=== PATIENT | male | born 1990 | race Caucasian/White ===

== ENCOUNTER 2023-08-22 01:49 | Inpatient (IN) ==
--- NOTE | 2023-08-22 02:08 | Emergency Department Note ---
Impression & Plan Otitis externa, Otitis media, Acute mastoiditis, Leukocytosis, Acute hypokalemia, COVID-19 ED Provider Note HISTORY OF PRESENT ILLNESS: Patient is a 33-year-old male presenting with left ear pain. Patient reports over the last 48 hours he been having progressively worsening pain in his left ear. Reports he has been alternating Tylenol and ibuprofen with little relief in his symptoms. Reports his last dose of acetaminophen was at midnight and was at 1000 mg. Reports that he has been having a recurrent ear infection in his left ear since March. In March he was diagnosed with otitis media and started on amoxicillin. He reports he was then diagnosed with a left ear infection at the end of July and started on a 10-day course of amoxicillin. He reports he was also given steroids during that course. He states that he was doing well and then was started on another short course of steroids for a sinus infection. States that he had a low-grade fever of 99 yesterday. He denies any chest pain or shortness of breath. He states that he is now having significant pain in the left ear that feels like a pressure sensation. He is also having pain on the left side of his neck. He does report pain with [id number] movement of the neck. Denies any pain or difficulty swallowing. Denies any headache or changes in vision. ROS: as above PHYSICAL EXAM: Constitutional: Patient appears in no acute distress. HENT: Head: Normocephalic and atraumatic. Eyes: EOMI, PERRL Right Ear: TM intact without erythema or bulging. External canal without erythema or discharge. Left Ear: TM with erythema and bulging. External canal is also slightly erythematous but without any discharge. Patient has significant tenderness to palpation of the mastoid on the left. Mouth/Throat: Mucous membranes moist. Uvula midline. No tonsillar hypertrophy or exudate. Neck: Trachea midline. Neck supple. Cardiovascular: Tachycardic with regular rhythm. No murmurs, rubs or gallops. Intact distal pulses. Pulmonary/Chest: No respiratory distress. Breath sounds clear and equal bilaterally. No wheezes or rales. Abdominal: Abdomen soft, no tenderness, rebound or guarding. Musculoskeletal: No edema, tenderness or deformity noted. Skin: Warm and dry. No rash, erythema, pallor or cyanosis Psychiatric: Appropriate mood and affect for situation. Neurological: Alert and keenly responsive. CN II-XII grossly intact, moving all extremities equally and fully. MDM: - Vitals signs showed tachycardia. - History obtained via patient. History as above. - Chronic conditions affecting care: None - Differential diagnoses include, but are not limited to: Otitis externa; otitis media; retropharyngeal infection; viral syndrome - Order placed for continuous cardiac monitoring. At this time, monitor showed rate of 87 bpm with normal sinus rhythm, per my interpretation. - External medical records reviewed. - Laboratory workup interpreted by myself showed leukocytosis (WBC 13.89) with left shift; hypokalemia (K 3.2); hyperglycemia (glucose 145) - CT soft tissue neck with IV contrast showed opacification of the left middle ear cavity and mastoid air cells consistent with otomastoiditis. Noted to also have thickening of the external auditory canal indicative of otitis externa. - Viral respiratory panel positive for COVID-19 - Patient given IV vancomycin and IV rocephin in ER for antibiotic coverage. - Ofloxacin drops also ordered for treatment of otitis externa - Discussion was had with casework supervisor about patient's case and need for admission - Hospitalist consulted for admission - Patient admitted to [facility] for further evaluation and management. ASSESSMENT AND PLAN: Diagnosis: acute left ear pain; otitis externa; otitis media; acute otomastoiditis; acute hypokalemia; COVID-19 infection Plan: admit Past Med/Surg History Problem List (Updated 08/22/23 @ 04:27 by Natalia Hernández MD) COVID-19 (Acute) Acute hypokalemia (Acute) Leukocytosis (Acute) Acute mastoiditis (Acute) Otitis media (Acute) Otitis externa (Acute) Social History (System 04/08/22 @ 15:30 by Raiza Noonan) Smoking Status: Current every day smoker Tobacco Type: E-cigarettes / Vaping Preferred Language: Niuean Feels Safe at Home: Yes Allergies Allergies Allergy/AdvReac Type Severity Reaction Status Date / Time codeine Allergy Unknown HAPPENED Verified 08/22/23 02:21 AN Home Meds Home Medications Medication Instructions Recorded Confirmed acetaminophen 500 mg tablet 500 mg PO Q6H PRN PAIN/FEVER 08/22/23 08/22/23 (Tylenol Extra Strength) ibuprofen 200 mg tablet 200 - 400 mg PO Q6H PRN PAIN/FEVER 08/22/23 08/22/23 Results & Data (ED) Vital Signs Vital Signs - 24 hr 08/22/23 01:51 Temperature 36.5 C Temperature Source Temporal Artery Scan Pulse Rate 103 H Respiratory Rate 16 Respiratory Effort / Characteristics Non-Labored Spontaneous Respiratory Depth Normal Blood Pressure 100/64 Blood Pressure Mean 76 Blood Pressure Position Sitting Pulse Oximetry 96 Oxygen Delivery Method Room Air Sepsis Recent Fever Within 48 Hours No Sepsis New/Unexplained Change in Mental Status No Sepsis Action Taken by Nursing No Action Required Laboratory Data 08/22/23 Unknown 08/22/23 Unknown Lab Results 08/22/23 08/22/23 Range/Units 02:35 Unknown WBC 13.89 H (4.8-10.8) K/ul RBC 5.38 (4.70-6.10) M/uL Hgb 13.9 L (14.0-18.0) g/dl Hct 42.2 (42.0-52.0) % MCV 78.4 L (80.0-100.0) fL MCH 25.8 (25.0-34.0) pg MCHC 32.9 (32.0-36.0) g/dL RDW Std Deviation 37.0 (36.4-46.3) fL RDW Coeff of Ruslan 13.1 (11.5-14.5) % Plt Count 304 (130-400) K/uL MPV 9.8 (9.4-12.4) fL Immature Gran % (Auto) 0.6 % Neut % (Auto) 69.2 % Lymph % (Auto) 22.0 % [place] % (Auto) 7.1 % Eos % (Auto) 0.7 % Baso % (Auto) 0.4 % Neut # (Auto) 9.62 H (1.40-6.50) K/uL Lymph # (Auto) 3.06 (1.20-3.40) K/uL [place] # (Auto) 0.98 H (0.11-0.59) K/uL Eos # (Auto) 0.10 (0.00-0.50) K/uL Baso # (Auto) 0.05 (0.00-0.20) K/uL Immature Gran # (Auto) 0.08 (0.01-0.20) K/uL Sodium 138 (136-145) mmol/L Potassium 3.2 L (3.5-5.1) mmol/L Chloride 104 (98-107) mmol/L Carbon Dioxide 28 (21-32) mmol/L Anion Gap 6 (3-11) BUN 8 (6-23) mg/dl Creatinine 0.92 (0.6-1.4) mg/dl Est Cr Clr Drug Dosing 145.7 ml/min Est GFR ( Amer) 128.0 ml/min Est GFR (Non-Af Amer) 110.4 ml/min BUN/Creatinine Ratio 8.7 L (10-20) Glucose 145 H (70-99(Fasting)) mg/dl Calcium 9.0 (8.6-10.3) mg/dl Total Bilirubin 0.5 (0.2-1.0) mg/dl AST 21 (13-39) U/L ALT 33 (7-52) U/L Alkaline Phosphatase 59 (34-104) U/L Total Protein 7.1 (6.0-8.3) gm/dl Albumin 3.9 (3.4-5.0) gm/dl Globulin 3.2 (2.5-4.0) gm/dl Albumin/Globulin Ratio 1.2 (0.9-2) Adenovirus (PCR) Not Detected (NotDetected) B. pertussis DNA (PCR) Not Detected (NotDetected) B.parapertussis DNA PCR Not Detected (NotDetected) C. pneumoniae DNA (PCR) Not Detected (NotDetected) Coronavirus OC43 (PCR) Not Detected (NotDetected) Coronavirus HKU1 (PCR) Not Detected (NotDetected) Coronavirus 229E (PCR) Not Detected (NotDetected) SARS-CoV-2 (PCR) DETECTED A (NotDetected) Coronavirus NL63 (PCR) Not Detected (NotDetected) Human Metapneumovir PCR Not Detected (NotDetected) Influenza Type A (PCR) Not Detected (NotDetected) Influenza Type B (PCR) Not Detected (NotDetected) M. pneumoniae (PCR) Not Detected (NotDetected) Parainfluenza 1 (PCR) Not Detected (NotDetected) Parainfluenza 2 (PCR) Not Detected (NotDetected) Parainfluenza 3 (PCR) Not Detected (NotDetected) Parainfluenza 4 (PCR) Not Detected (NotDetected) RSV (PCR) Not Detected (NotDetected) Entero/Rhino (PCR) Not Detected (NotDetected) Administered Medications Discontinued Medications Fentanyl Citrate (Fentanyl Citrate Pf 100 Mcg/2 Ml Vial) 50 mcg IV NOW STA Stop: 08/22/23 02:07 Last Admin: 08/22/23 02:33 Dose: 50 mcg Documented By: MELVIN Sodium Chloride (Nss) 1,000 mls @ 999 mls/hr IV .Q1H1M ONE Stop: 08/22/23 03:06 Last Infusion: 08/22/23 03:43 Dose: Infused Documented By: Admin: 08/22/23 02:33 Dose: 999 mls/hr Documented By: MELVIN Ioversol (Optiray 320 100ml) 100 ml IV ONCE ONE Stop: 08/22/23 03:12 Last Admin: 08/22/23 03:12 Dose: 91 ml Documented By: BON Imaging Data Radiologist's Impression: Soft Tissue Neck CT 08/22/23 02:06 Exam(s): CT NECK With Contrast IV Amt: 91 ML OPTIRAY 320 EXAM: CT Neck With Intravenous Contrast CLINICAL HISTORY: Reason for exam: neck pain with chronic L ear infection. TECHNIQUE: Axial computed tomography images of the neck with intravenous contrast. Automated exposure control was utilized for the study. A dose lowering technique was utilized adhering to the principles of ALARA. CONTRAST: Patient received 91 ML OPTIRAY 320 of IV contrast COMPARISON: No relevant prior studies available. FINDINGS: Oropharynx: Unremarkable. No significant tonsillar enlargement. No peritonsillar abscess. Hypopharynx: Unremarkable. Larynx: Unremarkable. Normal epiglottis. Trachea: Unremarkable. Retropharyngeal space: Unremarkable. Submandibular/parotid glands: Unremarkable. Glands are normal in size. Thyroid: Unremarkable. No enlarged or calcified nodules. Bones/joints: No acute fracture. Soft tissues: Unremarkable. Vasculature: No acute findings. Lymph nodes: Mild level 2 and level 3 lymphadenopathy bilaterally with several lymph nodes measuring up to 11 mm short axis diameter. Auditory system: There is opacification of the left middle ear cavity and mastoid air cells consistent with otomastoiditis. There is also slight thickening of the external auditory canal tissues which could indicate otitis externa as well. Lung apices: Unremarkable as visualized. IMPRESSION: There is opacification of the left middle ear cavity and mastoid air cells consistent with otomastoiditis. There is also slight thickening of the external auditory canal tissues which could indicate otitis externa as well. Electronically signed by: Benjamín Jolly MD 08/22/23 04:09 AM Discharge Plan Visit Data Chief Complaint: Ear Pain/Problem Stated Complaint: L EAR PAIN/PRESSURE ED Provider: Natalia Hernández Discharge Problem: Otitis externa, Otitis media, Acute mastoiditis, Leukocytosis, Acute hypokalemia, COVID-19 Forms Stand Alone Forms: [facility] [employer] Prescriptions Prescriptions: No Action acetaminophen [Tylenol Extra Strength] 500 mg Tablet 500 mg PO Q6H PRN (Reason: PAIN/FEVER) ibuprofen 200 mg Tablet 200 - 400 mg PO Q6H PRN (Reason: PAIN/FEVER) Referrals Referrals: PCP,NO [Primary Care Provider] -
[2023-08-22] MEDS: SODIUM CHLORIDE 0.9% 1,000 ML IV ONE (02:33)
[2023-08-22] MEDS: fentaNYL citrate PF 100 MCG/2 ML VIAL IV STA (02:33)
[2023-08-22 02:51] LABS: Albumin Globulin Ratio 1.2 (0.9-2); Albumin Level 3.9 gm/dl (3.4-5.0); BUN Creatinine Ratio 8.7 (10-20); Basophils # (auto) 0.05 K/uL (0.00-0.20); Basophils % (auto) 0.4 %; Bilirubin,Total 0.5 mg/dl (0.2-1.0); Creatinine Clr Calc Pharmacy 145.7 ml/min; Eosinophils % (auto) 0.7 %; Est GFR (Non-African American) 110.4 ml/min; Globulin 3.2 gm/dl (2.5-4.0); Hematocrit (blood only) 42.2 % (42.0-52.0); Hemoglobin 13.9 g/dl (14.0-18.0); Immature Granulocytes # (auto) 0.08 K/uL (0.01-0.20); Immature Granulocytes % (auto) 0.6 %; Lymphocytes # (auto) 3.06 K/uL (1.20-3.40); Mean Corpuscular Hemoglobin 25.8 pg (25.0-34.0); Mean Corpuscular Hgb Conc 32.9 g/dL (32.0-36.0); Mean Corpuscular Volume 78.4 fL (80.0-100.0); Mean Platelet Volume 9.8 fL (9.4-12.4); Monocytes # (auto) 0.98 K/uL (0.11-0.59); Monocytes % (auto) 7.1 %; Neutrophils # (auto) 9.62 K/uL (1.40-6.50); Neutrophils % (auto) 69.2 %; Platelet Count 304 K/uL (130-400); Potassium 3.2 mmol/L (3.5-5.1); RDW Coefficient of Variation 13.1 % (11.5-14.5); Red Blood Count 5.38 M/uL (4.70-6.10); Total Protein 7.1 gm/dl (6.0-8.3); White Blood Count 13.89 K/ul (4.8-10.8)
[2023-08-22] MEDS: OPTIRAY 320 100ml IV ONE (03:12)
[2023-08-22 03:37] LABS: Adenovirus PCR Not Detected (NotDetected); Bordetella parapertussis PCR Not Detected (NotDetected); Bordetella pertussis PCR Not Detected (NotDetected); Chlamydia pneumoniae PCR Not Detected (NotDetected); Coronavirus 229E PCR Not Detected (NotDetected); Coronavirus CoV-2 (COVID19)PCR DETECTED (NotDetected); Coronavirus HKU1 PCR Not Detected (NotDetected); Coronavirus NL63 PCR Not Detected (NotDetected); Coronavirus OC43PCR Not Detected (NotDetected); Human Metapneumovirus PCR Not Detected (NotDetected); Influenza A PCR Not Detected (NotDetected); Influenza B PCR Not Detected (NotDetected); Mycoplasma pneumoniae PCR Not Detected (NotDetected); Parainfluenza Virus 1 PCR Not Detected (NotDetected); Parainfluenza Virus 2 PCR Not Detected (NotDetected); Parainfluenza Virus 3 PCR Not Detected (NotDetected); Parainfluenza Virus 4 PCR Not Detected (NotDetected); Respiratory Syncytial VirusPCR Not Detected (NotDetected); Rhinovirus/Enterovirus PCR Not Detected (NotDetected)
--- NOTE | 2023-08-22 04:10 | CT Scan Report ---
Exam(s): CT NECK With Contrast IV Amt: 91 ML OPTIRAY 320 EXAM: CT Neck With Intravenous Contrast CLINICAL HISTORY: Reason for exam: neck pain with chronic L ear infection. TECHNIQUE: Axial computed tomography images of the neck with intravenous contrast. Automated exposure control was utilized for the study. A dose lowering technique was utilized adhering to the principles of ALARA. CONTRAST: Patient received 91 ML OPTIRAY 320 of IV contrast COMPARISON: No relevant prior studies available. FINDINGS: Oropharynx: Unremarkable. No significant tonsillar enlargement. No peritonsillar abscess. Hypopharynx: Unremarkable. Larynx: Unremarkable. Normal epiglottis. Trachea: Unremarkable. Retropharyngeal space: Unremarkable. Submandibular/parotid glands: Unremarkable. Glands are normal in size. Thyroid: Unremarkable. No enlarged or calcified nodules. Bones/joints: No acute fracture. Soft tissues: Unremarkable. Vasculature: No acute findings. Lymph nodes: Mild level 2 and level 3 lymphadenopathy bilaterally with several lymph nodes measuring up to 11 mm short axis diameter. Auditory system: There is opacification of the left middle ear cavity and mastoid air cells consistent with otomastoiditis. There is also slight thickening of the external auditory canal tissues which could indicate otitis externa as well. Lung apices: Unremarkable as visualized. IMPRESSION: There is opacification of the left middle ear cavity and mastoid air cells consistent with otomastoiditis. There is also slight thickening of the external auditory canal tissues which could indicate otitis externa as well. Electronically signed by: Benjamín Jolly MD 08/22/23 04:09 AM
[2023-08-22] MEDS ORDERED: VANCOMYCIN CONSULT ACTIVE PRN (04:12)
[2023-08-22] MEDS ORDERED: PROMETHAZINE HCL 12.5 MG in SODIUM CHLORIDE 0.9% 50 ML IV PRN (04:39)
[2023-08-22] MEDS: POTASSIUM CHLORIDE CRTAB 20 MEQ TABCR PO STA (04:54)
[2023-08-22 05:05] LABS: Magnesium 1.9 mg/dl (1.7-2.4)
[2023-08-22] MEDS: oxyCODONE HCL IR 5 MG TAB (IMMEDIATE RELEASE) PO PRN (05:05)
[2023-08-22] MEDS: NSS + 20MEQ KCL 20 MEQ/1,000 ML BAG IV ONE (05:05)
[2023-08-22] MEDS: CEFEPIME 2,000 MG/20 ML VIAL IV STA (05:05)
[2023-08-22] MEDS: VANCOMYCIN HCL 2,250 MG in SODIUM CHLORIDE 0.9% 500 ML IV ONE (05:24)
--- NOTE | 2023-08-22 05:47 | History & Physical Report ---
Date of Service August 22, 2023 Assessment & Plan (1) Sepsis: Plan: Secondary to left ear infection Otitis media associated with otitis externa as per CT Concomitant COVID-19 illness Hyperglycemia rule out DM Medical telemetry CS, Vancomycin, cefepime Topical Cipro for otitis externa left ENT consult re: left ear infection Check hemoglobin A1c DVT prophylaxis with Lovenox subcu Full code Text document was generated using [employer] voice recognition software. It may contain grammatical or spelling errors. Kindly contact undersigned for clarification of any documentation item in question. History of Present Illness Primary Care Provider: NO PCP History obtained from patient, family, and records. No significant medical history. 2 months ago, patient noted left ear fullness and discomfort. No discharge. No fever, no chills. Patient consulted local urgent care center which prescribed antibiotic and steroid Rx for combined sinus and ear infection. Minimal improvement of symptoms as per patient. Patient admits to intermittent left ear manipulation. Few days ago, patient noted worsening left ear pain. Fever and chills at home. No chest pain, no SOB. No cough symptoms Girlfriend with URTI symptoms as per patient. Intermittent dizziness symptoms described as spinning sensation. Pain going to the left jaw as per patient. Outpatient ENT consultation consulted at [facility] 2 days from now. Patient consulted ER for worsening symptoms. Medical History as above Surgical History : None Family History : Hypertension, DM Personal/Social history : Ongoing vape use, occasional Et[employer] intake, [employer] employment Allergies Allergy/AdvReac Type Severity Reaction Status Date / Time codeine Allergy Unknown HAPPENED Verified 08/22/23 02:21 AN Home Medications Medication Instructions Recorded Confirmed Type acetaminophen 500 mg tablet 500 mg PO Q6H PRN PAIN/FEVER 08/22/23 08/22/23 Hist ory (Tylenol Extra Strength) ibuprofen 200 mg tablet 200 - 400 mg PO Q6H PRN PAIN/FEVER 08/22/23 08/22/23 History Past Med/Surg History Problem List (Updated 08/22/23 @ 09:10 by Glen Marques MD) Sepsis COVID-19 (Acute) Acute hypokalemia (Acute) Leukocytosis (Acute) Acute mastoiditis (Acute) Otitis media (Acute) Otitis externa (Acute) Social History (System 04/08/22 @ 15:30 by Raiza Noonan) Smoking Status: Current every day smoker Tobacco Type: E-cigarettes / Vaping Preferred Language: Danish Feels Safe at Home: Yes Review of Systems Review of Systems: As per HPI, all other systems reviewed and negative Physical Exam Physical Exam: GENERAL: Slightly uncomfortable, pleasant, obese, no respiratory distress SKIN: Normal color, warm HEENT: [place] palpebral conjunctivae, no ptosis, dry buccal mucosa; AD: Patent mildly hyperemic EAC, retained cerumen, intact TM : Tragal tenderness, no discharge, hyperemic EAC, TM not visualized NECK : Supple, no tenderness CHEST : CTA, minimal left cervical tenderness HEART : RRR, no obvious murmurs ABDOMEN: Some distention, nontender EXTREMITIES : No LE swelling/tenderness, no other conspicuous deformities noted NEUROLOGIC : Coherent, no facial asymmetry, no other gross focality Results & Data Results & Data Vital Signs (Past 12 Hours) Vital Signs Temp Pulse Pulse Resp BP BP Pulse Ox 08/22/23 04:30 98 H 20 122/69 98 08/22/23 01:51 36.5 C 103 H 16 100/64 96 O2 Del Method 08/22/23 04:30 Room Air 08/22/23 01:51 Room Air Laboratory Results Laboratory Results WBC 13.89 K/ul (4.8-10.8) H 08/22/23 Unknown RBC 5.38 M/uL (4.70-6.10) 08/22/23 Unknown Hgb 13.9 g/dl (14.0-18.0) L 08/22/23 Unknown Hct 42.2 % (42.0-52.0) 08/22/23 Unknown MCV 78.4 fL (80.0-100.0) L 08/22/23 Unknown MCH 25.8 pg (25.0-34.0) 08/22/23 Unknown MCHC 32.9 g/dL (32.0-36.0) 08/22/23 Unknown RDW Std Deviation 37.0 fL (36.4-46.3) 08/22/23 Unknown RDW Coeff of Ruslan 13.1 % (11.5-14.5) 08/22/23 Unknown Plt Count 304 K/uL (130-400) 08/22/23 Unknown MPV 9.8 fL (9.4-12.4) 08/22/23 Unknown Immature Gran % (Auto) 0.6 % 08/22/23 Unknown Neut % (Auto) 69.2 % 08/22/23 Unknown Lymph % (Auto) 22.0 % 08/22/23 Unknown [place] % (Auto) 7.1 % 08/22/23 Unknown Eos % (Auto) 0.7 % 08/22/23 Unknown Baso % (Auto) 0.4 % 08/22/23 Unknown Neut # (Auto) 9.62 K/uL (1.40-6.50) H 08/22/23 Unknown Lymph # (Auto) 3.06 K/uL (1.20-3.40) 08/22/23 Unknown [place] # (Auto) 0.98 K/uL (0.11-0.59) H 08/22/23 Unknown Eos # (Auto) 0.10 K/uL (0.00-0.50) 08/22/23 Unknown Baso # (Auto) 0.05 K/uL (0.00-0.20) 08/22/23 Unknown Immature Gran # (Auto) 0.08 K/uL (0.01-0.20) 08/22/23 Unknown Sodium 138 mmol/L (136-145) 08/22/23 Unknown Potassium 3.2 mmol/L (3.5-5.1) L 08/22/23 Unknown Chloride 104 mmol/L (98-107) 08/22/23 Unknown Carbon Dioxide 28 mmol/L (21-32) 08/22/23 Unknown Anion Gap 6 (3-11) 08/22/23 Unknown BUN 8 mg/dl (6-23) 08/22/23 Unknown Creatinine 0.92 mg/dl (0.6-1.4) 08/22/23 Unknown Est Cr Clr Drug Dosing 145.7 ml/min 08/22/23 Unknown Est GFR ( Amer) 128.0 ml/min 08/22/23 Unknown Est GFR (Non-Af Amer) 110.4 ml/min 08/22/23 Unknown BUN/Creatinine Ratio 8.7 (10-20) L 08/22/23 Unknown Glucose 145 mg/dl (70-99(Fasting)) H 08/22/23 Unknown Lactate 1.7 mmol/L (0.4-2.0) 08/22/23 04:23 Calcium 9.0 mg/dl (8.6-10.3) 08/22/23 Unknown Magnesium 1.9 mg/dl (1.7-2.4) 08/22/23 Unknown Total Bilirubin 0.5 mg/dl (0.2-1.0) 08/22/23 Unknown AST 21 U/L (13-39) 08/22/23 Unknown ALT 33 U/L (7-52) 08/22/23 Unknown Alkaline Phosphatase 59 U/L (34-104) 08/22/23 Unknown Total Protein 7.1 gm/dl (6.0-8.3) 08/22/23 Unknown Albumin 3.9 gm/dl (3.4-5.0) 08/22/23 Unknown Globulin 3.2 gm/dl (2.5-4.0) 08/22/23 Unknown Albumin/Globulin Ratio 1.2 (0.9-2) 08/22/23 Unknown Adenovirus (PCR) Not Detected (NotDetected) 08/22/23 02:35 B. pertussis DNA (PCR) Not Detected (NotDetected) 08/22/23 02:35 B.parapertussis DNA PCR Not Detected (NotDetected) 08/22/23 02:35 C. pneumoniae DNA (PCR) Not Detected (NotDetected) 08/22/23 02:35 Coronavirus OC43 (PCR) Not Detected (NotDetected) 08/22/23 02:35 Coronavirus HKU1 (PCR) Not Detected (NotDetected) 08/22/23 02:35 Coronavirus 229E (PCR) Not Detected (NotDetected) 08/22/23 02:35 SARS-CoV-2 (PCR) DETECTED (NotDetected) A 08/22/23 02:35 Coronavirus NL63 (PCR) Not Detected (NotDetected) 08/22/23 02:35 Human Metapneumovir PCR Not Detected (NotDetected) 08/22/23 02:35 Influenza Type A (PCR) Not Detected (NotDetected) 08/22/23 02:35 Influenza Type B (PCR) Not Detected (NotDetected) 08/22/23 02:35 M. pneumoniae (PCR) Not Detected (NotDetected) 08/22/23 02:35 Parainfluenza 1 (PCR) Not Detected (NotDetected) 08/22/23 02:35 Parainfluenza 2 (PCR) Not Detected (NotDetected) 08/22/23 02:35 Parainfluenza 3 (PCR) Not Detected (NotDetected) 08/22/23 02:35 Parainfluenza 4 (PCR) Not Detected (NotDetected) 08/22/23 02:35 RSV (PCR) Not Detected (NotDetected) 08/22/23 02:35 Entero/Rhino (PCR) Not Detected (NotDetected) 08/22/23 02:35 Impressions Soft Tissue Neck CT 08/22/23 02:06 Exam(s): CT NECK With Contrast IV Amt: 91 ML OPTIRAY 320 EXAM: CT Neck With Intravenous Contrast CLINICAL HISTORY: Reason for exam: neck pain with chronic L ear infection. TECHNIQUE: Axial computed tomography images of the neck with intravenous contrast. Automated exposure control was utilized for the study. A dose lowering technique was utilized adhering to the principles of ALARA. CONTRAST: Patient received 91 ML OPTIRAY 320 of IV contrast COMPARISON: No relevant prior studies available. FINDINGS: Oropharynx: Unremarkable. No significant tonsillar enlargement. No peritonsillar abscess. Hypopharynx: Unremarkable. Larynx: Unremarkable. Normal epiglottis. Trachea: Unremarkable. Retropharyngeal space: Unremarkable. Submandibular/parotid glands: Unremarkable. Glands are normal in size. Thyroid: Unremarkable. No enlarged or calcified nodules. Bones/joints: No acute fracture. Soft tissues: Unremarkable. Vasculature: No acute findings. Lymph nodes: Mild level 2 and level 3 lymphadenopathy bilaterally with several lymph nodes measuring up to 11 mm short axis diameter. Auditory system: There is opacification of the left middle ear cavity and mastoid air cells consistent with otomastoiditis. There is also slight thickening of the external auditory canal tissues which could indicate otitis externa as well. Lung apices: Unremarkable as visualized. IMPRESSION: There is opacification of the left middle ear cavity and mastoid air cells consistent with otomastoiditis. There is also slight thickening of the external auditory canal tissues which could indicate otitis externa as well. Electronically signed by: Benjamín Jolly MD 08/22/23 04:09 AM
[2023-08-22] MEDS: OFLOXACIN 0.3% 75 DROPS/5 ML BTL OTL SCH (06:10)
[2023-08-22] MEDS: cefTRIAXone SODIUM 1,000 MG/50 ML BAG IV STA (06:59)
[2023-08-22 07:12] LABS: Estimated Average Glucose 111 mg/dl; Hemoglobin A1C 5.5 % (4.5-5.6)
--- NOTE | 2023-08-22 07:14 | Communication Note ---
Date of Service: August 22, 2023 Pt was seen in 251-1 Resting comfortably. Denied acute concerns. L ear tender to palpation, no significant erythema noted Otomastoiditis, otits externa Continue current treatments with Cefepime and Vanc, ciprodex For further/complete information on plan of care, please see History and Physical from same date of service.
[2023-08-22] MEDS ORDERED: OFLOXACIN 0.3% 75 DROPS/5 ML BTL OP SCH (09:00)
[2023-08-22] MEDS: KETOROLAC TROMETHAMINE 15 MG/ML VIAL IV PRN (09:24)
--- NOTE | 2023-08-22 09:49 | Pharmacy Report ---
Pharmacy PK ABX Note - Date of Service August 22, 2023 - Assessment and Plan Assessment * 33 year old M receiving cefepime and vancomycin for treatment of sepsis 2nd AOM. Also COVID + on admission. On ofloxacin ear drops for otitis externa as well. Recently prescribed a 10 day course of Augmentin on 07/26 for combined AOM and sinusitis. Patient reported minimal improvement. * Pertinent microbiologic data includes: blood cultures pending Plan Vancomycin * Loading dose: 2250 mg IV x 1 * Maintenance dose: 1750 mg IV every 12 hours * Regimen is predicted to achieve target AUC/JADYN of 400-600 mg/L.hr * Random level ordered for 6/20 AM Pharmacy will continue to follow and will adjust dose/frequency as necessary. Thank you. Pharmacy has transitioned to AUC monitoring for vancomycin. AUC/JADYN is the preferred PK/PD target and is associated with decreased risk of nephrotoxicity compared to traditional trough targets.
[2023-08-22] MEDS: ENOXAPARIN INJ 40 MG/0.4 ML SYR SQ SCH (10:02)
[2023-08-22] MEDS: CEFEPIME 2,000 MG in SYRINGE 0 ML IV SCH (12:52)
[2023-08-22] MEDS: IBUPROFEN 200 MG TAB PO PRN (17:21)
[2023-08-22] MEDS: VANCOMYCIN HCL 1,750 MG in SODIUM CHLORIDE 0.9% 500 ML IV SCH (21:12)
[2023-08-23] MEDS: ACETAMINOPHEN 325 MG TAB PO PRN (02:00)
[2023-08-23 08:07] LABS: Hematocrit (blood only) 39.1 % (42.0-52.0); Hemoglobin 12.7 g/dl (14.0-18.0); Mean Corpuscular Hemoglobin 25.7 pg (25.0-34.0); Mean Corpuscular Hgb Conc 32.5 g/dL (32.0-36.0); Mean Platelet Volume 9.8 fL (9.4-12.4); Platelet Count 288 K/uL (130-400); RDW Coefficient of Variation 13.2 % (11.5-14.5); RDW Standard Deviation 37.4 fL (36.4-46.3); Red Blood Count 4.95 M/uL (4.70-6.10); White Blood Count 8.18 K/ul (4.8-10.8)
[2023-08-23 08:27] LABS: Basophils # (auto) 0.07 K/uL (0.00-0.20); Basophils % (auto) 0.9 %; Eosinophils # (auto) 0.24 K/uL (0.00-0.50); Eosinophils % (auto) 2.9 %; Immature Granulocytes # (auto) 0.04 K/uL (0.01-0.20); Immature Granulocytes % (auto) 0.5 %; Lymphocytes # (auto) 3.13 K/uL (1.20-3.40); Lymphocytes % (auto) 38.3 %; Monocytes # (auto) 0.72 K/uL (0.11-0.59); Monocytes % (auto) 8.8 %; Neutrophils # (auto) 3.98 K/uL (1.40-6.50); Neutrophils % (auto) 48.6 %
[2023-08-23 08:37] LABS: BUN Creatinine Ratio 8.9 (10-20); Calcium 8.9 mg/dl (8.6-10.3); Creatinine Clr Calc Pharmacy 169.7 ml/min; Est GFR (African American) 138.7 ml/min; Est GFR (Non-African American) 119.7 ml/min; Potassium 4.1 mmol/L (3.5-5.1)
--- NOTE | 2023-08-23 11:26 | Hospitalist Progress Note ---
Date of Service August 23, 2023 Assessment & Plan (1) Sepsis: Plan: Secondary to left ear infection Otitis media associated with otitis externa as per CT, Otomastoiditis Concomitant COVID-19 illness Medical telemetry CS, Vancomycin, cefepime Topical Cipro for otitis externa left ENT consulted and discussed - plan for outpt follow up In the meantime plan for 2 weeks of PO antibiotics (Augmentin) and ear drops (ciprodex) Hyperglycemia, Current hemoglobin A1c 5.5% Follow up as outpt DVT prophylaxis with Lovenox subcu Full code Admission and Anticipated Discharge Date Admission Date: August 22, 2023 Subjective Pt seen in follow up Pt is resting in NAD, left face pain much improved but hearing is still quite muffled no fever, chills, chest pain, or shortness of breath. No abd. pain Discussed w/ ENT - will be seen as outpt - cont. abx Review of Systems Review of Systems: All systems reviewed & are unremarkable except as noted in Subjective Physical Exam Physical Exam: GENERAL: obese young M in NAD HEENT: NC/AT, [place] palpebral conjunctivae, no ptosis, L ear mildly tender to palpation, no ext. erythema noted NECK : Supple, no tenderness CHEST : CTA, minimal left cervical tenderness HEART : RRR, no obvious murmurs ABDOMEN: Some obese, + bowel sounds EXTREMITIES : No LE swelling/tenderness, moves extremities NEUROLOGIC : Coherent, no facial asymmetry, no other gross focality SKIN: Normal color, warm Results & Data Results & Data Vital Signs (Past 12 Hours) Vital Signs Temp Pulse Resp BP BP Pulse Ox O2 Del Method 08/23/23 08:23 36.5 C 66 18 108/68 97 Room Air 08/23/23 04:25 36.8 C 96 H 20 132/80 96 Room Air 08/22/23 23:49 37.0 C 91 H 20 129/84 97 Room Air Laboratory Results 08/23/23 Range/Units 07:42 WBC 8.18 (4.8-10.8) K/ul RBC 4.95 (4.70-6.10) M/uL Hgb 12.7 L (14.0-18.0) g/dl Hct 39.1 L (42.0-52.0) % MCV 79.0 L (80.0-100.0) fL MCH 25.7 (25.0-34.0) pg MCHC 32.5 (32.0-36.0) g/dL RDW Std Deviation 37.4 (36.4-46.3) fL RDW Coeff of Ruslan 13.2 (11.5-14.5) % Plt Count 288 (130-400) K/uL MPV 9.8 (9.4-12.4) fL Immature Gran % (Auto) 0.5 % Neut % (Auto) 48.6 % Lymph % (Auto) 38.3 % [place] % (Auto) 8.8 % Eos % (Auto) 2.9 % Baso % (Auto) 0.9 % Neut # (Auto) 3.98 (1.40-6.50) K/uL Lymph # (Auto) 3.13 (1.20-3.40) K/uL [place] # (Auto) 0.72 H (0.11-0.59) K/uL Eos # (Auto) 0.24 (0.00-0.50) K/uL Baso # (Auto) 0.07 (0.00-0.20) K/uL Immature Gran # (Auto) 0.04 (0.01-0.20) K/uL Sodium 141 (136-145) mmol/L Potassium 4.1 D (3.5-5.1) mmol/L Chloride 108 H (98-107) mmol/L Carbon Dioxide 29 (21-32) mmol/L Anion Gap 4 (3-11) BUN 7 (6-23) mg/dl Creatinine 0.79 (0.6-1.4) mg/dl Est Cr Clr Drug Dosing 169.7 ml/min Est GFR ( Amer) 138.7 ml/min Est GFR (Non-Af Amer) 119.7 ml/min BUN/Creatinine Ratio 8.9 L (10-20) Glucose 94 (70-99(Fasting)) mg/dl Calcium 8.9 (8.6-10.3) mg/dl Medications Administered Current Inpatient Medications Acetaminophen (Acetaminophen 325 Mg Tab) 650 mg PO QID PRN PRN Reason: pain/fever Stop: 09/21/23 04:38 Last Admin: 08/23/23 02:00 Dose: 650 mg Enoxaparin Sodium (Enoxaparin Inj 40 Mg/0.4 Ml Syr) 40 mg SQ Q24H [facility] Stop: 09/21/23 09:59 Last Admin: 08/23/23 09:46 Dose: Not Given Promethazine HCl 12.5 mg/ (Sodium Chloride) 50.5 mls @ 202 mls/hr IV Q6H PRN PRN Reason: Nausea And Vomiting Stop: 09/21/23 04:38 Cefepime HCl 2,000 mg/ Syringe 20 mls @ 5 mls/min IV Q8H [facility]; Protocol Stop: 09/01/23 12:59 Last Admin: 08/23/23 04:57 Dose: 5 mls/min Vancomycin HCl 1,750 mg/ (Sodium Chloride) 535 mls @ 200 mls/hr IV Q12 [facility] Stop: 09/01/23 20:59 Last Admin: 08/23/23 09:46 Dose: 200 mls/hr Ibuprofen (Ibuprofen 200 Mg Tab) 200 mg PO Q6H PRN PRN Reason: pain not relieved by tylenol Stop: 09/21/23 04:40 Last Admin: 08/23/23 02:00 Dose: 200 mg Ketorolac Tromethamine (Ketorolac Tromethamine 15 Mg/Ml Vial) 15 mg IV Q6H PRN PRN Reason: Pain Stop: 08/27/23 04:40 Last Admin: 08/22/23 18:25 Dose: 15 mg Lactobacillus Acidophilus (Advanced Probiotic 625 Mg Capsule) 1,250 mg PO DAILY [facility] Stop: 09/22/23 11:14 Miscellaneous Information (Vancomycin Consult Active) 1 each N/A UD PRN PRN Reason: Consult Stop: 09/21/23 04:11 Ofloxacin (Ofloxacin 0.3% 75 Drops/5 Ml Btl) 5 drops OTL BID [facility] Stop: 09/01/23 05:59 Last Admin: 08/23/23 09:46 Dose: 5 drops Oxycodone HCl (Oxycodone Hcl Ir 5 Mg Tab (Immediate Release)) 5 - 10 mg PO QID PRN PRN Reason: Pain Stop: 09/05/23 04:38 Last Admin: 08/22/23 05:05 Dose: 10 mg
[2023-08-23] MEDS: ADVANCED PROBIOTIC 625 MG CAPSULE PO SCH (12:13)
[2023-08-23] MEDS: CIPRO 0.3%/DEXAMETHASONE 0.1% OTIC SUSP 7.5ML OT SCH (13:53)
[2023-08-24 07:11] LABS: Hemoglobin 12.7 g/dl (14.0-18.0); Mean Corpuscular Hemoglobin 25.9 pg (25.0-34.0); Mean Corpuscular Hgb Conc 33.4 g/dL (32.0-36.0); Mean Corpuscular Volume 77.6 fL (80.0-100.0); Mean Platelet Volume 9.5 fL (9.4-12.4); Platelet Count 352 K/uL (130-400); RDW Coefficient of Variation 12.9 % (11.5-14.5); RDW Standard Deviation 36.3 fL (36.4-46.3); White Blood Count 8.23 K/ul (4.8-10.8)
[2023-08-24 07:35] LABS: BUN Creatinine Ratio 10.5 (10-20); Calcium 9.1 mg/dl (8.6-10.3); Creatinine Clr Calc Pharmacy 176.5 ml/min; Est GFR (African American) 140.9 ml/min; Est GFR (Non-African American) 121.6 ml/min; Magnesium 1.9 mg/dl (1.7-2.4); Phosphorus 3.2 mg/dl (2.5-4.9); Potassium 4.1 mmol/L (3.5-5.1)
--- NOTE | 2023-08-24 08:45 | Pharmacy Report ---
Pharmacy PK ABX Note - Date of Service August 24, 2023 - Assessment and Plan Assessment * 33 year old M receiving cefepime and vancomycin for treatment of sepsis 2nd AOM (also receiving Ciprodex ear drops for otitis externa). Also COVID + on admission. Recently prescribed a 10 day course of Augmentin on 07/26 for combined AOM and sinusitis. * Patient reported minimal improvement as an outpatient. Pain now much improved, but hearing is still reduced. * Pertinent microbiologic data includes: blood cultures x 2 show no growth to date * Leukocytosis improved (14 K -> 8K), remains afebrile, renal function stable. Plan Vancomycin * Current regimen: 1750 mg IV every 12 hours * Random level obtained 08/24/23 resulted as 8.9 mcg/mL. This is predicted to result in subtherapeutic AUC/JADYN below 400 mg/L.hr * Change to 1500 mg IV every 8 hours * Predicted AUC at steady state: 491 mg/L.hr * Repeat random level ordered for: 08/25/23 Pharmacy will continue to follow and will adjust dose/frequency as necessary. Thank you. Pharmacy has transitioned to AUC monitoring for vancomycin. AUC/JADYN is the preferred PK/PD target and is associated with decreased risk of nephrotoxicity compared to traditional trough targets.
[2023-08-24] MEDS: VANCOMYCIN HCL 1,500 MG in SODIUM CHLORIDE 0.9% 500 ML IV SCH (08:47)
[2023-08-24] MEDS: VANCOMYCIN LEVEL ONE (08:52)
--- NOTE | 2023-08-24 09:22 | Discharge Summary ---
Date of Service August 24, 2023 Admission HPI Per Admitting Provider History obtained from patient, family, and records. No significant medical history. 2 months ago, patient noted left ear fullness and discomfort. No discharge. No fever, no chills. Patient consulted local urgent care center which prescribed antibiotic and steroid Rx for combined sinus and ear infection. Minimal improvement of symptoms as per patient. Patient admits to intermittent left ear manipulation. Few days ago, patient noted worsening left ear pain. Fever and chills at home. No chest pain, no SOB. No cough symptoms Girlfriend with URTI symptoms as per patient. Intermittent dizziness symptoms described as spinning sensation. Pain going to the left jaw as per patient. Outpatient ENT consultation consulted at [facility] 2 days from now. Patient consulted ER for worsening symptoms. Medical History as above Surgical History : None Family History : Hypertension, DM Personal/Social history : Ongoing vape use, occasional EtOH intake, [employer] employment Admission Exam Per Admitting Provider GENERAL: Slightly uncomfortable, pleasant, obese, no respiratory distress SKIN: Normal color, warm HEENT: [place] palpebral conjunctivae, no ptosis, dry buccal mucosa; AD: Patent mildly hyperemic EAC, retained cerumen, intact TM : Tragal tenderness, no discharge, hyperemic EAC, TM not visualized NECK : Supple, no tenderness CHEST : CTA, minimal left cervical tenderness HEART : RRR, no obvious murmurs ABDOMEN: Some distention, nontender EXTREMITIES : No LE swelling/tenderness, no other conspicuous deformities noted NEUROLOGIC : Coherent, no facial asymmetry, no other gross focality Principal Diagnosis Sepsis Otomastoiditis - Otitis media associated with otitis externa + COVID 19 Discharge Exam GENERAL: obese young M in NAD HEENT: [place]/AT, [place] palpebral conjunctivae, no ptosis, L ear mildly tender to palpation (much improved), no ext. erythema noted NECK : Supple, no tenderness CHEST : CTA, minimal left cervical tenderness HEART : RRR, no obvious murmurs ABDOMEN: Some obese, + bowel sounds EXTREMITIES : No LE swelling/tenderness, moves extremities NEUROLOGIC : Coherent, no facial asymmetry, no other gross focality SKIN: Normal color, warm Discharge Data Allergies Allergy/AdvReac Type Severity Reaction Status Date / Time codeine Allergy Unknown HAPPENED Verified 08/22/23 02:21 AN Consultations 08/22/23 04:21 ED Decision to Admit Stat 08/23/23 08:00 Consult Otolaryngology (Head and Neck) Routine Ordered Studies 08/22/23 02:06 CT soft tissue neck w con Stat FINDINGS: Oropharynx: Unremarkable. No significant tonsillar enlargement. No peritonsillar abscess. Hypopharynx: Unremarkable. Larynx: Unremarkable. Normal epiglottis. Trachea: Unremarkable. Retropharyngeal space: Unremarkable. Submandibular/parotid glands: Unremarkable. Glands are normal in size. Thyroid: Unremarkable. No enlarged or calcified nodules. Bones/joints: No acute fracture. Soft tissues: Unremarkable. Vasculature: No acute findings. Lymph nodes: Mild level 2 and level 3 lymphadenopathy bilaterally with several lymph nodes measuring up to 11 mm short axis diameter. Auditory system: There is opacification of the left middle ear cavity and mastoid air cells consistent with otomastoiditis. There is also slight thickening of the external auditory canal tissues which could indicate otitis externa as well. Lung apices: Unremarkable as visualized. IMPRESSION: There is opacification of the left middle ear cavity and mastoid air cells consistent with otomastoiditis. There is also slight thickening of the external auditory canal tissues which could indicate otitis externa as well. Hospital Course (1) Sepsis: Secondary to left ear infection Otitis media associated with otitis externa as per CT, Otomastoiditis Concomitant COVID-19 illness Medical telemetry CS, Vancomycin, cefepime Topical Cipro for otitis externa left ENT consulted and discussed - plan for outpt follow up (pt not seen by ENT while inpt) Discharge on 2 weeks of PO antibiotics (Augmentin) and ear drops (ciprodex) Hyperglycemia, Current hemoglobin A1c 5.5% Follow up as outpt Total Time Total Time Spent Total Time Spent (In Minutes): 40 Discharge Plan Discharge Items Patient Disposition: Home - Self-Care Reason For Visit: SEPSIS, COVID Discharge Diagnosis: Sepsis Otomastoiditis - Otitis media associated with otitis externa + COVID 19 Activity: Per Instructions section Non-emergency contact: Primary Care Provider and Specialist Call non-emergency contact if: you have any medication questions and your symptoms worsen Follow-up/Referrals: Byron Avina M.D. [Outside Practitioners] - (Date & Time 08/28/2023 9:00 AM Provider Byron Avina MD Department [facility] [place] ) Earl Hernandez PA-C [Physician [facility]] - (Date & Time 08/24/2023 11:40 AM Provider Earl Hernandez PA-C Department Otolaryngology, [place] ) Diet: Regular Addtl Attending Provider Instructions: Follow up with your primary care doctor and ENT doctor. Take antibiotics - Augmentin - as prescribed. In addition, use antibiotic ear drops as prescribed. Addtl [employer] Provider Instructions: Coronavirus disease 2019 (COVID-19) is a virus that causes a respiratory illness. It is caused by a coronavirus called 2019 novel coronavirus (2019- nCoV). There are many types of coronavirus. Coronaviruses are a very common cause of bronchitis. They may sometimes cause lung infection(pneumonia). Symptoms can range from mild to severe respiratory illness. These viruses are also foundin some animals. COVID-19 was first found in people in [facility], in late 2018. In 2020, several cases of COVID-19 have been confirmed in the [place] Public health officials are working to find the source. How the virus spreads is not yet fully known. It may be spread through droplets of fluid that a person coughs or sneezes into the air. It may be spread if you touch a surface with virus on it, such as a handle or object, and then touch your mouth. What are the symptoms of COVID-19? Some people have no symptoms or mild symptoms. Symptoms may appear 2 to 14 days after contact with the virus. Symptoms can include: Fever Coughing Trouble breathing What are possible complications from COVID-19? In many cases, this virus can cause infection (pneumonia) in both lungs. In some cases, this can cause . How is COVID-19 diagnosed? Your healthcare provider will ask about your symptoms. He or she will also ask about your recent travel and contact with sick people. Testing for the virus is only done through the CDC. If yourhealthcare provider thinks you may have COVID- 19, he or she will work with your local health department and the CDC on testing. Follow all instructions from your healthcare provider. COVID-19 is diagnosed by: Nasal and throat swab. A cotton-tipped swab is wiped inside your nose or throat. This is done to check for viruses in your nasal mucus. Sputum culture. A small sample of mucus coughed from your lungs (sputum) is collected if you have a cough. It is checked for the virus. How is COVID-19 treated? There is currently no medicine to treat the virus. Treatment is done to help your body while it fights the virus. This is known as supportive care. Supportive care may include: Pain medicine. These include acetaminophen and ibuprofen. They are used to help ease pain and reduce fever. Bed rest. This helps your body fight the illness. For severe illness, you may need to stay in the hospital. Care during severe illness may include: IV (intravenous) fluids.These are given through a vein to help keep your body hydrated. Oxygen. Supplemental oxygen or ventilation with a breathing machine (ventilator) may be given. This is done to keep enough oxygen in your body. Are you at risk for COVID-19? If youve been to a place where people have been sick with this virus, you are at risk for infection. You are at risk if you: Recently traveled to an affected area Had contact with a sick person who recently traveled to this area Had contact with a person who was diagnosed with COVID-19 How can COVID-19 be prevented? There is no vaccine yet. The best prevention is to not have contact with the virus. The CDC advises that people should not travel to areas where there are COVID-19 outbreaks right now for any reason that is not urgent. To help prevent spreading the infection, wash your hands often, or use an alcohol-basedhand cutter finisher. If you are in an area with COVID-19: Wash your hands often. Or use an alcohol-based hand cutter finisher often. Only touch your eyes, nose, or mouth with clean hands. Dont have contact with people who are sick. Follow local instructions about being in public. For example, you may be told to not use public transport for a period of time. Stay away from markets that have live or animals. Wash your hands after touching any animals. Don't touch animals that may be sick. Dont share eating or drinking tools with sick people. Dont kiss someone who is sick. Clean surfaces often with disinfectant. If you were in an area with COVID-19 in the last 14 days: Call your healthcare provider. He or she can talk with local health staff to see what action may be needed. Follow all instructions from your provider. Take your temperature every morning and evening for at least 14 days. This is to check for fever. Keep a record of the readings. Keep watch for symptoms of the virus. Tell your provider right away if you have symptoms. If you were in an area with COVID-19 and have a fever or other symptoms: Dont panic. Keep in mind that other illnesses can cause similar symptoms. Stay away from work, school, and public places. Limit physical contact with family members. Don't kiss anyone or share eating or drinking utensils. Clean surfaces you touch with disinfectant. This is to help prevent the virus from spreading. Call your healthcare provider. Explain that you have been exposed to COVID-19 and have symptoms. Do this before going to any hospital. Wait for instructions. Keep in mind that healthcare staff may wear protective equipment such as masks, gowns, gloves, and eye protection. You may be put in a separate room. This is to prevent the possible virus from spreading. Tell the healthcare staff about recent travel. This includes local travel on public transport. Staff may need to find other people you have been in contact with. Follow all instructions the healthcare staff give you. If you have been diagnosed with COVID-19 Follow all instructions from your healthcare provider. Dont leave your home, except to get medical care. Call your healthcare providers office before going. They can prepare and give you instructions. This will help prevent the virus from spreading. Dont go to work, school, or public areas. Dont use public transport or taxis. Stay away from other people in your home. Have them wear face masks around you. Dont share household items or food. Wear a face mask if you can. This includes at home or in a medical facility. Cover your face with a tissue when you cough or sneeze. Throw the tissue away. Wash your hands. Wash your hands often. Caregivers should: Follow all instructions from healthcare staff. Wear a face mask and protective clothing as advised. Wash hands often. Keep track of the sick persons symptoms. Clean surfaces, fabrics, and laundry thoroughly. Keep other people away from the sick person. When to call your healthcare provider Call your healthcare provider: If youve recently traveled and have symptoms If you have been diagnosed with COVID-19 and your symptoms are worse To learn more To find out more about COVID-19, visit the CDC website at www.cdc.gov/coronavirus/2019-ncov/index.html. The [employer]. [address] [place] [address], [place] [address]. All rights reserved. This information is not intended as a substitute for professional medical care. Always follow your healthcare professional's instructions. This information has been adapted from [employer] Home Isolation COVID-19 Instructions The following information about Home Isolation is from the CDC Website: https://www.cdc.gov/coronavirus/2019-ncov/hcp/vrjgxjvh-zoodzxm-mnhlxx.html Stay home except to get medical care People who are mildly ill with COVID-19 are able to isolate at home during their illness. You should restrict activities outside your home, except for getting medical care. Do not go to work, school, or public areas. Avoid using public transportation, ride-sharing, or taxis. Separate yourself from other people and animals in your home People: As much as possible, you should stay in a specific room and away from other people in your home. Also, you should use a separate bathroom, if available. Animals: You should restrict contact with pets and other animals while you are sick with COVID-19, just like you would around other people. Although there have not been reports of pets or other animals becoming sick with COVID-19, it is still recommended that people sick with COVID-19 limit contact with animals until more information is known about the virus. When possible, have another member of your household care for your animals while you are sick. If you are sick with COVID-19, avoid contact with your pet, including petting, snuggling, being kissed or licked, and sharing food. If you must care for your pet or be around animals while you are sick, wash your hands before and after you interact with pets and wear a face mask. Call ahead before visiting your doctor If you have a medical appointment, call the healthcare provider and tell them that you have or may have COVID-19. This will help the healthcare providers office take steps to keep other people from getting infected or exposed. Wear a face mask You should wear a face mask when you are around other people (e.g., sharing a room or vehicle) or pets and before you enter a healthcare providers office. If you are not able to wear a face mask (for example, because it causes trouble breathing), then people who live with you should not stay in the same room with you, or they should wear a face mask if they enter your room. Cover your coughs and sneezes Cover your mouth and nose with a tissue when you cough or sneeze. Throw used tissues in a lined trash can. Immediately wash your hands with soap and water for at least 20 seconds or, if soap and water are not available, clean your hands with an alcohol-based hand cutter finisher that contains at least 60% alcohol. Clean your hands often Wash your hands often with soap and water for at least 20 seconds, especially after blowing your nose, coughing, or sneezing; going to the bathroom; and before eating or preparing food. If soap and water are not readily available, use an alcohol-based hand cutter finisher with at least 60% alcohol, covering all surfaces of your hands and rubbing them together until they feel dry. Soap and water are the best option if hands are visibly dirty. Avoid touching your eyes, nose, and mouth with unwashed hands. Avoid sharing personal household items You should not share dishes, drinking glasses, cups, eating utensils, towels, or bedding with other people or pets in your home. After using these items, they should be washed thoroughly with soap and water. Clean all high-touch surfaces everyday High touch surfaces include counters, tabletops, doorknobs, bathroom fixtures, toilets, phones, keyboards, tablets, and bedside tables. Also, clean any surfaces that may have blood, stool, or body fluids on them. Use a household cleaning spray or wipe, according to the label instructions. Labels contain instructions for safe and effective use of the cleaning product including precautions you should take when applying the product, such as wearing gloves and making sure you have good ventilation during use of the product. Monitor your symptoms Seek prompt medical attention if your illness is worsening (e.g., difficulty breathing).Beforeseeking care, call your healthcare provider and tell them that you have, or are being evaluated for, COVID-19. Put on a face mask before you enter the facility. These steps will help the healthcare providers office to keep other people in the office or waiting room from getting infected or exposed. Ask your healthcare provider to call the local or state health department. Persons who are placed under active monitoring or facilitated self- monitoring should follow instructions provided by their local health department or occupational health professionals, as appropriate. When working with your local health department check their available hours. If you have a medical emergency and need to call 911, notify the dispatch personnel that you have, or are being evaluated for COVID-19. If possible, put on a face mask before emergency medical services arrive. Discontinuing home isolation Patients with confirmed COVID-19 should remain under home isolation precautions until the risk of secondary transmission to others is thought to be low. The decision to discontinue home isolation precautions should be made on a snlv-ls-[id number] basis, in consultation with healthcare providers and [facility] and [facility] health departments. Pending Studies at Discharge: Yes Studies:: final blood cultx results Stand-Alone Forms: [facility] [employer], Smoking Cessation Medications and DC Order Prescriptions: New ciprofloxacin-dexamethasone 0.3-0.1 % Drops,Suspension 4 drp otic (ear) BID Qty: 7.5 0RF Advanced Probiotic 625 mg (10 billion cell) Capsule 1 cap PO DAILY Qty: 10 0RF amoxicillin-pot clavulanate 875-125 mg tablet 1 tab PO BID 14 Days Qty: 28 0RF Continued acetaminophen [Tylenol Extra Strength] 500 mg Tablet 500 mg PO Q6H PRN (Reason: PAIN/FEVER) ibuprofen 200 mg Tablet 200 - 400 mg PO Q6H PRN (Reason: PAIN/FEVER) Discharge Orders: Discharge Order (Routine); Ordered 08/24/23 Ordered By: Tarun Newman Admission Data Admit Date/Time: 08/22/23 05:49 Attending Provider: Tarun Newman Admit Provider: Glen Marques Primary Care Provider: PCP,NO Other Providers: Brenda Levy; Glen Marques
[2023-08-25] MEDS ORDERED: VANCOMYCIN LEVEL ONE (07:30)
== END 2023-08-24 12:19 | disposition home or self-care (01) | DRG 871 ==
LOC: ED 01:49 → SUATTDRO 05:49 → 2W 05:49
DX: A41.9 Sepsis, unspecified organism; H60.392 Other infective otitis externa, left ear; F17.290 Nicotine dependence, other tobacco product, uncomplicated; U07.1 COVID-19; H75.02 Mastoiditis in infectious and parasitic diseases classified elsewhere, left ear; H66.92 Otitis media, unspecified, left ear; Z88.5 Allergy status to narcotic agent; E87.6 Hypokalemia